=== PATIENT | male | born 1995 | race Caucasian/White ===

== ENCOUNTER 2019-06-22 07:51 | Emergency (ER) | payer BC ==
[~2019-06-22] VITALS: Ht 172.7 cm; Wt 88.5 kg
[~2019-06-22 07:51] MED LIST: SOLODYN
== END 2019-06-22 08:36 | disposition home or self-care (01) ==
LOC: ER 07:51
DX: K64.4 Residual hemorrhoidal skin tags (principal); F17.210 Nicotine dependence, cigarettes, uncomplicated
CPT/HCPCS: 99282

== ENCOUNTER 2019-07-03 16:12 | Emergency (ER) | payer BC ==
[~2019-07-03] VITALS: Ht 172.7 cm; Wt 88.5 kg
--- OUTSIDE RECORDS SUMMARY | 2019-07-03 16:15 | XMS REPORT ---
Author Author [facility] t Organization [facility] Address Unknown Phone Unavailable Care Team Providers Care Body Shop Manager Name Role Phone DO MELVIN ERNST PP Advance Directives Directive Decision Effective Date Termination Date Status Comm ents Yes N/A Active Problems Condition Name Condition Details Condition Category Status Onset Date Resolution Date Last Treatment Date Treating Clinician Comments Problem Condition Allergies, Adverse Reactions, Alerts This patient has no known allergies or adverse reactions. Medications Ordered Medication Name Filled Medication Name Start Date Stop Da te Current Medication? Ordering Clinician Indication Dosage Frequency Signature (SIG) Comments Components Solodyn Solodyn Yes Vital Signs Vital Name Observation Time Observation Value Comments Weight 2019-06-22 07:59:00 195 [lb_av] Encounters Start Date/Time End Date/Time [facility] Type [facility] ID 2019-06-22 07:51:00 2019-06-22 08:36:00 Departed Emergency Room [facility] [id number]
[2019-07-03] MEDS ORDERED: LIDOCAINE 1% 5ML-MPF INJ ONE (16:30)
[2019-07-03] MEDS ORDERED: NEOMYCIN/POLYMYX/BACITR OINT 0.9 GM PKT ONE (16:55)
[2019-07-03] MEDS ORDERED: NEOMYCIN/POLYMYXIN/BACITRACIN 15 GM TUBE TOP SCH (17:00)
== END 2019-07-03 16:55 | disposition home or self-care (01) ==
LOC: ER 16:12
DX: S01.81XA Laceration without foreign body of other part of head, initial encounter (principal); W29.8XXA Contact with other powered hand tools and household machinery, initial encounter; Y92.008 Other place in unspecified non-institutional (private) residence as the place of occurrence of the external cause
CPT/HCPCS: 99283